=== PATIENT | female | born 1995 | race Caucasian/White ===

== ENCOUNTER 2016-09-23 06:51 | Emergency (ER) | payer OTHER ==
[~2016-09-23] VITALS: Ht 167.6 cm; Wt 104.3 kg
[~2016-09-23 06:51] MED LIST: AZIT500T2; BUTA1CAP29 PO; ETON1VAG; LEVO75TA5 PO; PREN1TAB58 PO
--- NOTE | 2016-09-23 06:53 | ED.ADGEN ---
Past History Past Medical History: No Pertinent History, Ovarian Cyst Additional Past Medical Histor: ulcers Past Surgical History: Other Additional Past Surgical Histo: ovarian cyst Smoking: Non-smoker Alcohol Use: None Drug Use: None Adult General Chief Complaint Chief Complaint Nausea vomiting diarrhea HPI HPI Patient is a 21 year old female who presents with nausea vomiting diarrhea. She states his been going on for last 4-5 days, started after she had to clean out vomit from [place]. 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 She states she's vomiting department twice per day and is after she tries to eat in addition she has nonbloody loose stools throughout the day. She states she can't count the meantime she's had stools but is usually after she tries to eat. She denies any abdominal pain, fevers chills. She has had a cyst removed on one of her ovaries otherwise no other abdominal surgeries. She is passing gas. She states she is just feels exhausted and tired and hasn't been able to work secondary to her symptoms. She denies any recent travel outside the country. Review of Systems Review of Systems Constitutional: Denies fever or chills [] Eyes: Denies change in visual acuity, redness, or eye pain [] HENT: Denies nasal congestion or sore throat [] Respiratory: Denies cough or shortness of breath [] Cardiovascular: No additional information not addressed in HPI [] GI: Denies abdominal pain positive for nausea vomiting diarrhea, denies any blood in her stools. : Denies dysuria or hematuria [] Musculoskeletal: Denies back pain or joint pain [] Integument: Denies rash or skin lesions [] Neurologic: Denies headache, focal weakness or sensory changes [] Endocrine: Denies polyuria or polydipsia [] Current Medications Current Medications Current Medications Medications (Trade) Dose Ordered Sig/Emily Start Time Stop Time Status Last Admin Dose Admin Ondansetron HCl 4 mg 4 mg 1X ONCE 09/23/16 07:30 09/23/16 07:31 DC 09/23/16 07:26 4 MG Sodium Chloride (Iv Sodium Chloride 0.9% 1,000ml) 1,000 ml @ 1,000 mls/hr 1X ONCE 09/23/16 08:15 09/23/16 09:14 09/23/16 08:15 1,000 MLS/HR Allergies Allergies Allergies Coded Allergies Type Severity Reaction Last Updated Verified amoxicillin Allergy Unknown 09/23/16 Yes Physical Exam Physical Exam Constitutional: Well developed, well nourished, no acute distress, non-toxic appearance. [] HENT: Normocephalic, atraumatic, bilateral external ears normal, oropharynx moist, no oral exudates, nose normal. [] Eyes: PERRLA, EOMI, conjunctiva normal, no discharge. [] Neck: Normal range of motion, no tenderness, supple, no stridor. [] Cardiovascular:Heart rate regular rhythm, no murmur [] Lungs & Thorax: Bilateral breath sounds clear to auscultation [] Abdomen: Bowel sounds normal, soft, no tenderness, no masses, no pulsatile masses. [] Skin: Warm, dry, no erythema, no rash. [] Back: No tenderness, no CVA tenderness. [] Extremities: No tenderness, no cyanosis, no clubbing, ROM intact, no edema. [] Neurologic: Alert and oriented X 3, normal motor function, normal sensory function, no focal deficits noted. [] Psychologic: Affect normal, judgement normal, mood normal. [] Current Patient Data Vital Signs Vital Signs Date Time Temp Pulse Resp B/P Pulse Ox O2 Delivery O2 Flow Rate FiO2 09/23/16 09:00 60 18 106/69 100 Room Air 09/23/16 07:03 97.9 Lab Results Laboratory Tests Test 09/23/16 07:10 09/23/16 07:12 09/23/16 07:25 Urine Collection Type Unknown Urine Color Yellow Urine Clarity Clear Urine pH 5.5 Urine Specific [place] 1.015 Urine Protein Neg (NEG-TRACE) Urine Glucose (UA) Negmg/dL (NEG) Urine Ketones (Stick) Negmg/dL (NEG) Urine Blood Trace (NEG) Urine Nitrite Neg (NEG) Urine Bilirubin Neg (NEG) Urine Urobilinogen Dipstick 0.2mg/dL (0.2 mg/dL) Urine Leukocyte Esterase Neg (NEG) Urine RBC Occ/HPF (0-2) Urine WBC 0/HPF (0-4) Urine Squamous Epithelial Cells Few/LPF Urine Bacteria 0/HPF (0-FEW) POC Urine HCG, Qualitative hcg negative (Negative) White Blood Count 8.6x10^3/uL (4.0-11.0) Red Blood Count 4.34x10^6/uL (3.50-5.40) Hemoglobin 12.7g/dL (12.0-15.5) Hematocrit 37.6% (36.0-47.0) Mean Corpuscular Volume 87fL (79-100) Mean Corpuscular Hemoglobin 29pg (25-35) Mean Corpuscular Hemoglobin Concent 34g/dL (31-37) Red Cell Distribution Width 13.5% (11.5-14.5) Platelet Count 253x10^3/uL (140-400) Neutrophils (%) (Auto) 56% (31-73) Lymphocytes (%) (Auto) 33% (24-48) Monocytes (%) (Auto) 8% (0-9) Eosinophils (%) (Auto) 3% (0-3) Basophils (%) (Auto) 1% (0-3) Neutrophils # (Auto) 4.8x10^3uL (1.8-7.7) Lymphocytes # (Auto) 2.8x10^3/uL (1.0-4.8) Monocytes # (Auto) 0.7x10^3/uL (0.0-1.1) Eosinophils # (Auto) 0.2x10^3/uL (0.0-0.7) Basophils # (Auto) 0.0x10^3/uL (0.0-0.2) Sodium Level 139mmol/L (136-145) Potassium Level 4.0mmol/L (3.5-5.1) Chloride Level 105mmol/L (98-107) Carbon Dioxide Level 28mmol/L (21-32) Anion Gap 6 (6-14) Blood Urea Nitrogen 10mg/dL (7-20) Creatinine 0.8mg/dL (0.6-1.0) Estimated GFR (Cockcroft-Gault) 90.5 Glucose Level 101mg/dL (70-99) H Calcium Level 8.4mg/dL (8.5-10.1) L Total Bilirubin 0.3mg/dL (0.2-1.0) Direct Bilirubin 0.1mg/dL (0.0-0.2) Aspartate Amino Transferase (AST) 15U/L (15-37) Alanine Aminotransferase (ALT) 22U/L (14-59) Alkaline Phosphatase 80U/L (46-116) Total Protein 7.6g/dL (6.4-8.2) Albumin 3.4g/dL (3.4-5.0) Lipase 174U/L (73-393) EKG EKG [] Radiology/Procedures Radiology/Procedures [] Course & Med Decision Making Course & Med Decision Making Pertinent Labs and Imaging studies reviewed. (See chart for details) She received 2 L of normal saline she did urinate for us but has not had any kind of bowel movements. Her labs not show any acute abnormalities. She will be discharged home with AKHIL Joseph, she is instructed to follow-up with primary care physician within next 45 days, return ER she was fevers chills dehydration , abdominal pain or symptoms don't improve over the next several days. She is agreeable Plan B discharged in stable condition. Final Impression Final Impression Nausea vomiting diarrhea Problems: Dragon Disclaimer Dragon Disclaimer This electronic medical record was generated, in whole or in part, using a voice recognition dictation system. COMPA PICHARDO MD September 23, 2016 06:53
[2016-09-23] MEDS ORDERED: ONDANSETRON PF 4 MG/2 ML VIAL. IV ONE (07:30)
[2016-09-23] MEDS ORDERED: IV NORMAL SALINE 1,000ML 1,000 ML IV SCH (07:30)
[2016-09-23 07:46] LABS: BASO % 1 % (0-3); EOS # 0.2 x10^3/uL (0.0-0.7); EOS % 3 % (0-3); HEMATOCRIT 37.6 % (36.0-47.0); HEMOGLOBIN 12.7 g/dL (12.0-15.5); LYMPH # 2.8 x10^3/uL (1.0-4.8); LYMPH % 33 % (24-48); MEAN CORPUSCULAR HEMOGLOBIN 29 pg (25-35); MEAN CORPUSCULAR HGB CONC 34 g/dL (31-37); MEAN CORPUSCULAR VOLUME 87 fL (79-100); MONO # 0.7 x10^3/uL (0.0-1.1); MONO % 8 % (0-9); NEUT # 4.8 x10^3uL (1.8-7.7); NEUT % 56 % (31-73); PLATELET COUNT 253 x10^3/uL (140-400); RED BLOOD COUNT 4.34 x10^6/uL (3.50-5.40); RED CELL DISTRIBUTION WIDTH 13.5 % (11.5-14.5); WHITE BLOOD COUNT 8.6 x10^3/uL (4.0-11.0)
[2016-09-23 07:53] LABS: BACTERIA,URINE 0 /HPF (0-FEW); BILIRUBIN,URINE NEG (NEG); CLARITY,URINE CLEAR; COLOR,URINE YELLOW; GLUCOSE,URINE NEG (NEG); NITRITE,URINE NEG (NEG); RBC,URINE OCC /HPF (0-2); SQUAMOUS EPITHELIAL CELL,UR FEW /LPF; UROBILINOGEN,URINE 0.2 mg/dL (0.2 mg/dL); WBC,URINE 0 /HPF (0-4)
[2016-09-23 07:54] LABS: ALBUMIN 3.4 g/dL (3.4-5.0); CALCIUM 8.4 mg/dL (8.5-10.1); CREATININE 0.8 mg/dL (0.6-1.0); DIRECT BILIRUBIN 0.1 mg/dL (0.0-0.2); GFR 90.5; TOTAL BILIRUBIN 0.3 mg/dL (0.2-1.0); TOTAL PROTEIN 7.6 g/dL (6.4-8.2)
[2016-09-23] MEDS ORDERED: IV NORMAL SALINE 1,000ML 1,000 ML IV ONE (08:15)
[2016-09-23 09:00] VITALS: BP 106/69
[2016-09-23] MEDS ORDERED: ONDA4TAB10 SL (09:01)
== END 2016-09-23 09:08 | disposition home or self-care (01) ==
LOC: ER 06:57
DX: R11.2 Nausea with vomiting, unspecified (principal); R19.7 Diarrhea, unspecified; Z88.1 Allergy status to other antibiotic agents
CPT/HCPCS: 36415; 80048; 80076; 81001; 81025; 83690; 85027; 96361; 96374; 99284; J2405; J7030

== ENCOUNTER 2016-11-20 16:52 | Emergency (ER) | payer OTHER ==
[~2016-11-20] VITALS: Ht 167.6 cm; Wt 105.0 kg
[~2016-11-20 16:52] MED LIST changes: +ONDA4TAB10 SL
[2016-11-20] MEDS ORDERED: ONDANSETRON ODT 4 MG TAB.RAPDIS PO ONE (17:45)
[2016-11-20] MEDS ORDERED: MORPHINE SULFATE 10 MG/ML SYRINGE. IM ONE (17:45)
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
--- NOTE | 2016-11-20 18:29 | EKG ---
[address] [address] Test Date: 2016-11-20 Test Time: 17:46:31 Pat Name: JEANA WAKEFIELD Department: Room: Gender: F [employer] Techn[employer]: : 1995 Requested By: AMANDA JHA Order Number: [id number] Reading MD: Measurements Intervals [place] Rate: 81 P: 39 NV: 138 QRS: 20 QRSD: 84 T: 34 QT: 350 QTc: 407 Interpretive Statements SINUS RHYTHM NORMAL ECG RI6.01 Unconfirmed report No previous ECG available for comparison
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
[2016-11-20] MEDS ORDERED: ALPRAZolam 0.25 MG TABLET PO ONE (19:20)
[2016-11-20 20:40] VITALS: BP 109/65
[2016-11-20] MEDS ORDERED: KETOROLAC 60 MG/2 ML VIAL. IM ONE (20:45)
== END 2016-11-20 21:00 | disposition home or self-care (01) ==
LOC: ER 16:52
DX: R10.30 Lower abdominal pain, unspecified (principal); M54.2 Cervicalgia; R07.89 Other chest pain; Z88.1 Allergy status to other antibiotic agents; V89.2XXA Person injured in unspecified motor-vehicle accident, traffic, initial encounter; Y93.89 Activity, other specified; Y99.8 Other external cause status; Y92.410 Unspecified street and highway as the place of occurrence of the external cause
CPT/HCPCS: 51701; 70450; 71250; 72125; 74176; 93005; 96372; 99284; J1885; J2270; Q0162

== ENCOUNTER 2016-11-22 22:42 | Emergency (ER) | payer OTHER ==
[~2016-11-22] VITALS: Ht 167.6 cm; Wt 105.0 kg
[2016-11-22 22:50] VITALS: BP 132/73
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
[2016-11-22] MEDS ORDERED: diphenhydrAMINE 50 MG/ML VIAL IVP ONE (23:15)
[2016-11-22] MEDS ORDERED: PROCHLORPERAZINE 10 MG/2 ML VIAL. IV ONE (23:15)
[2016-11-22] MEDS ORDERED: IV NORMAL SALINE 1,000ML 1,000 ML IV ONE (23:15)
[2016-11-22 23:49] LABS: BASO % 0 % (0-3); EOS # 0.4 x10^3/uL (0.0-0.7); EOS % 4 % (0-3); HEMATOCRIT 37.3 % (36.0-47.0); HEMOGLOBIN 12.6 g/dL (12.0-15.5); LYMPH # 3.3 x10^3/uL (1.0-4.8); LYMPH % 28 % (24-48); MEAN CORPUSCULAR HEMOGLOBIN 29 pg (25-35); MEAN CORPUSCULAR HGB CONC 34 g/dL (31-37); MEAN CORPUSCULAR VOLUME 86 fL (79-100); MONO # 0.9 x10^3/uL (0.0-1.1); MONO % 7 % (0-9); NEUT # 7.4 x10^3uL (1.8-7.7); NEUT % 61 % (31-73); PLATELET COUNT 254 x10^3/uL (140-400); RED BLOOD COUNT 4.37 x10^6/uL (3.50-5.40); RED CELL DISTRIBUTION WIDTH 13.5 % (11.5-14.5); WHITE BLOOD COUNT 12.1 x10^3/uL (4.0-11.0)
[2016-11-22 23:52] LABS: BILIRUBIN,URINE NEG (NEG); CLARITY,URINE CLEAR; COLOR,URINE YELLOW; GLUCOSE,URINE NEG (NEG); NITRITE,URINE NEG (NEG); RBC,URINE 0 /HPF (0-2); UROBILINOGEN,URINE 0.2 mg/dL (0.2 mg/dL); WBC,URINE OCC /HPF (0-4)
[2016-11-22 23:53] LABS: BACTERIA,URINE 0 /HPF (0-FEW); SQUAMOUS EPITHELIAL CELL,UR FEW /LPF
[2016-11-22 23:57] LABS: ALBUMIN 3.6 g/dL (3.4-5.0); ALBUMIN/GLOBULIN RATIO 0.8 (1.0-1.7); CALCIUM 8.5 mg/dL (8.5-10.1); CREATININE 0.9 mg/dL (0.6-1.0); POTASSIUM 3.5 mmol/L (3.5-5.1); TOTAL BILIRUBIN 0.3 mg/dL (0.2-1.0); TOTAL PROTEIN 8.1 g/dL (6.4-8.2)
--- NOTE | 2016-11-22 23:57 | RAD ---
CT scan of the head without contrast 11/22/2016 Clinical History: Worsening headache.. Technique: Unenhanced, contiguous, 5 mm axial sections were obtained through the head. One or more of the following individualized dose reduction techniques were utilized for this study: 1. Automated exposure control. 2. Adjustment of the mA and/or kV according to patient size. 3. Use of iterative reconstruction technique. Findings: Comparison study is dated 11/20/2016. The ventricles and sulci are within normal limits in size and configuration. No focal area of abnormal attenuation is seen involving the brain parenchyma. No extra-axial fluid collection is seen. Impression: Negative study. Electronically signed by: Shadi Armenta MD (11/22/2016 11:54 PM)
[2016-11-23] MEDS ORDERED: ONDA4TAB7 PO (00:29)
[2016-11-23] MEDS ORDERED: CYCL-331 PO (00:29)
== END 2016-11-23 00:43 | disposition home or self-care (01) ==
LOC: ER 22:42
DX: Z33.1 Pregnant state, incidental (principal); R51 Headache; M79.1 Myalgia; R10.9 Unspecified abdominal pain; M54.2 Cervicalgia; M25.512 Pain in left shoulder; M25.511 Pain in right shoulder; V89.2XXD Person injured in unspecified motor-vehicle accident, traffic, subsequent encounter; Z98.890 Other specified postprocedural states; Z88.1 Allergy status to other antibiotic agents
CPT/HCPCS: 36415; 70450; 80053; 81001; 81025; 84702; 85027; 96361; 96374; 96375; 99285; J0780; J1200; J7030

== ENCOUNTER → 2016-11-25 | Outpatient (CLI) | payer OTHER ==
[2016-11-22 22:50] VITALS: BP 132/73
[~2016-11-25] MED LIST changes: +CYCL-331 PO; +ONDA4TAB7 PO
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
== END | disposition home or self-care (01) ==
LOC: RAD 16:51
PROVIDERS: ATTEND Family Medicine
DX: R07.9 Chest pain, unspecified (principal); M25.519 Pain in unspecified shoulder; V29.9XXD Motorcycle rider (driver) (passenger) injured in unspecified traffic accident, subsequent encounter
CPT/HCPCS: 71020

== ENCOUNTER 2017-01-22 20:00 | Emergency (ER) | payer OTHER ==
[~2017-01-22] VITALS: Ht 167.6 cm; Wt 115.4 kg
[2017-01-22 21:12] LABS: BACTERIA,URINE 0 /HPF (0-FEW); BILIRUBIN,URINE NEG (NEG); CLARITY,URINE CLEAR; COLOR,URINE YELLOW; GLUCOSE,URINE NEG (NEG); NITRITE,URINE NEG (NEG); SQUAMOUS EPITHELIAL CELL,UR MOD /LPF; UROBILINOGEN,URINE 0.2 mg/dL (0.2 mg/dL)
[2017-01-22] MEDS ORDERED: AZITHROMYCIN 250 MG TABLET. PO ONE (22:15)
[2017-01-22] MEDS ORDERED: cefTRIAXone IM 250 MG VIAL IM ONE (22:15)
[2017-01-22] MEDS ORDERED: ONDANSETRON ODT 4 MG TAB.RAPDIS ONE (22:19)
[2017-01-22] MEDS ORDERED: ONDA4TAB10 SL (22:23)
--- NOTE | 2017-01-22 22:23 | PHYS DOC ---
Past History Past Medical History: Endometriosis, Migraines, Ovarian Cyst Additional Past Medical Histor: ulcers Past Surgical History: Other Additional Past Surgical Histo: ovarian cyst Smoking: Non-smoker Alcohol Use: None Drug Use: None Adult General Chief Complaint Chief Complaint: ABDOMINAL PAIN IN [facility] HPI Patient is a 21 year old female who presents with complaint of pelvic cramping. Patient states that she has been having worsening symptoms over the past 2 days but has been having off-and-on symptoms for approximately 2 weeks. The patient is currently 11 weeks . Patient follows with Dr. Gutiérrez for care. Patient had an ultrasound at 7 weeks which confirmed intrauterine at that time. Patient denies any fevers. Patient has had persistent nausea over the course of her first trimester but is currently not on any medications. Patient states that the cramping in her pelvis seems to radiate towards her low back. Patient denies any urinary symptoms or vaginal bleeding but has noted abnormal vaginal discharge. Patient states that she has not had sexual intercourse over the past month. Agent has not taken any medications for her symptoms at this time. He states that she has been drinking normal amounts of water at home. Review of Systems Review of Systems Constitutional: Denies fever or chills [] Eyes: Denies change in visual acuity, redness, or eye pain [] HENT: Denies nasal congestion or sore throat [] Respiratory: Denies cough or shortness of breath [] Cardiovascular: No additional information not addressed in HPI [] GI: Nausea, denies vomiting, bloody stools or diarrhea [] : Pelvic cramping, vaginal discharge, denies vaginal bleeding, dysuria, or hematuria[] Musculoskeletal: Back pain[] Integument: Denies rash or skin lesions [] Neurologic: Denies headache, focal weakness or sensory changes [] Current Medications Current Medications Current Medications Medications (Trade) Dose Ordered Sig/Emily Start Time Stop Time Status Last Admin Dose Admin Azithromycin (Zithromax) 1,000 mg 1X ONCE 01/22/17 22:15 01/22/17 22:16 DC Ceftriaxone Sodium (Rocephin Im) 250 mg 1X ONCE 01/22/17 22:15 01/22/17 22:16 DC Allergies Allergies Allergies Coded Allergies Type Severity Reaction Last Updated Verified amoxicillin Allergy Intermediate 01/22/17 Yes Physical Exam Physical Exam Constitutional: Alert, obese, afebrile, no acute distress. [] HENT: Normocephalic, atraumatic, bilateral external ears normal, oropharynx moist, no oral exudates, nose normal. [] Eyes: PERRLA, EOMI, conjunctiva normal, no discharge. [] Neck: Normal range of motion, no tenderness, supple, no stridor. [] Cardiovascular:Heart rate regular rhythm, no murmur [] Lungs & Thorax: Bilateral breath sounds clear to auscultation [] Abdomen: Bowel sounds normal, soft, no tenderness, no masses, no pulsatile masses. Pelvic: Normal external exam, thick yellow/white discharge from cervical os, cervix appears inflamed, cervical motion tenderness present, midline tenderness present on bimanual exam, no adnexal tenderness[] Skin: Warm, dry, no erythema, no rash. [] Back: No tenderness, no CVA tenderness. [] Extremities: No tenderness, no cyanosis, no clubbing, ROM intact, no edema. [] Neurologic: Alert and oriented X 3, normal motor function, normal sensory function, no focal deficits noted. [] Current Patient Data Vital Signs Vital Signs Date Time Temp Pulse Resp B/P (MAP) Pulse Ox O2 Delivery O2 Flow Rate FiO2 01/22/17 20:10 98.3 75 20 94 Room Air Lab Results Laboratory Tests Test 01/22/17 20:25 Urine Collection Type Void Urine Color Yellow Urine Clarity Clear Urine pH 6.0 Urine Specific [place] 1.020 Urine Protein Neg (NEG-TRACE) Urine Glucose (UA) Neg mg/dL (NEG) Urine Ketones (Stick) Neg mg/dL (NEG) Urine Blood Small (NEG) Urine Nitrite Neg (NEG) Urine Bilirubin Neg (NEG) Urine Urobilinogen Dipstick 0.2 mg/dL (0.2 mg/dL) Urine Leukocyte Esterase Neg (NEG) Urine RBC 3-5 /HPF (0-2) Urine WBC 1-4 /HPF (0-4) Urine Squamous Epithelial Cells Mod /LPF Urine Bacteria 0 /HPF (0-FEW) Urine Mucus Marked /LPF Microbiology 01/22/17 Wet Prep - Final, Complete EKG EKG Not performed[] Radiology/Procedures Radiology/Procedures Limited transabdominal bedside ultrasound performed and interpreted by myself: Viable intrauterine , heart rate 174 bpm, frequent movements, no abnormalities noted in the adnexa[] Course & Med Decision Making Course & Med Decision Making Pertinent Labs and Imaging studies reviewed. (See chart for details) The patient has evidence of cervicitis on the exam. Despite patient's history of no sexual intercourse reported, I feel clinically the patient should be treated for possible sexually transmitted infection. The patient was given IM Rocephin and oral azithromycin. Gonorrhea and chlamydia cultures are pending at this time. Recommended follow-up with Dr. Gutiérrez in 3-5 days for reevaluation and also recommended continued oral hydration. Patient was provided with a prescription for Zofran to help with nausea. Advised return emergency department for any worsening symptoms. Patient voiced understanding and in agreement with treatment plan. Dragon Disclaimer Dragon Disclaimer This chart was dictated in whole or in part using Voice Recognition software in a busy, high-work load, and often noisy Emergency Department environment. It may contain unintended and wholly unrecognized errors or omissions. Departure Departure: Impression: Primary Impression: Cervicitis Additional Impression: First trimester Disposition: HOME, SELF-CARE Condition: IMPROVED Referrals: BIANCA ROSEN DO (PCP) Patient Instructions: Cervicitis, - First Trimester Additional Instructions: Follow-up with Dr. Gutiérrez in 3-5 days for re-evaluation. You were treated with Rocephin and Azithromycin for possible infection. Return to the emergency department for any worsening symptoms. Scripts Ondansetron (ZOFRAN ODT) 4 Mg Tab.rapdis 1 TAB SL Q8HRS Y for NAUSEA/VOMITING, #15 TAB Prov: TERRI RESENDEZ MD 01/22/17 Problem Qualifiers TERRI RESENDEZ MD Jan 22, 2017 22:23
[2017-01-22 22:35] VITALS: BP 105/57
[2017-01-23] MEDS ORDERED: ONDANSETRON ODT 4 MG TAB.RAPDIS PO ONE
[2017-01-26 14:09] LABS: CHLAMYDIA PROBE Negative (Negative)
== END 2017-01-22 22:45 | disposition home or self-care (01) ==
LOC: ER 20:00
DX: O23.511 Infections of cervix in pregnancy, first trimester (principal); G43.909 Migraine, unspecified, not intractable, without status migrainosus; Z3A.01 Less than 8 weeks gestation of pregnancy; Z88.1 Allergy status to other antibiotic agents
CPT/HCPCS: 36415; 81001; 87491; 87591; 96372; 99285; J0456; J0696; Q0111; Q0162

== ENCOUNTER 2018-02-02 08:49 | Emergency (ER) | payer OTHER ==
[~2018-02-02] VITALS: Ht 167.6 cm; Wt 113.4 kg
[2018-02-02 08:53] VITALS: BP 111/71
--- NOTE | 2018-02-02 09:18 | PHYS DOC ---
Past History Past Medical History: Endometriosis, Migraines, Ovarian Cyst Additional Past Medical Histor: ulcers Past Surgical History: Other Additional Past Surgical Histo: ovarian cyst Smoking: Non-smoker Alcohol Use: None Drug Use: None Adult General Chief Complaint Chief Complaint: ABDOMINAL PAIN [facility] HPI Patient is a 22 year old female who presents with complaining of lower abdominal pain that started about 20 minutes prior to arrival to ER as a sharp and constant pain with radiation to genital area in his back. Patient complaining of nausea without fever and chills, diarrhea and constipation, urinary symptoms, vaginal bleeding or discharge. Patient denies history of the same pain. Patient rated her pain 9/10. Patient didn't take any pain medication prior to arrival to ER. Patient states her LMP was January 17 that was 3 weeks late and started 1 week after starting control pills with 8 days of spotting. Review of Systems Review of Systems Constitutional: Denies fever or chills [] Eyes: Denies change in visual acuity, redness, or eye pain [] HENT: Denies nasal congestion or sore throat [] Respiratory: Denies cough or shortness of breath [] Cardiovascular: No additional information not addressed in HPI [] GI: Reports abdominal pain, nausea, denies vomiting, bloody stools or diarrhea [ ] : Denies dysuria or hematuria [] Musculoskeletal: Denies back pain or joint pain [] Integument: Denies rash or skin lesions [] Neurologic: Denies headache, focal weakness or sensory changes [] Endocrine: Denies polyuria or polydipsia [] All other systems were reviewed and found to be within normal limits, except as documented in this note. Allergies Allergies Allergies Coded Allergies Type Severity Reaction Last Updated Verified amoxicillin Allergy Intermediate 01/22/17 Yes Physical Exam Physical Exam Constitutional: Well developed, well nourished, mild distress, non-toxic appearance, morbidly obese. [] HENT: Normocephalic, atraumatic, oropharynx moist. [] Eyes: PERRLA, EOMI, conjunctiva normal, no discharge. [] Neck: Normal range of motion, no tenderness, supple, no stridor. [] Cardiovascular:Heart rate regular rhythm, no murmur [] Lungs & Thorax: Bilateral breath sounds clear to auscultation [] Abdomen: Bowel sounds normal, soft, no tenderness, no masses, no pulsatile masses. [] Skin: Warm, dry, no erythema, no rash. [] Back: No tenderness, no CVA tenderness. [] Extremities: No tenderness, no cyanosis, no clubbing, ROM intact, no edema. [] Neurologic: Alert and oriented X 3, normal motor function, normal sensory function, no focal deficits noted. [] Psychologic: Affect anxious, judgement normal, mood normal. [] Current Patient Data Vital Signs Vital Signs Date Time Temp Pulse Resp B/P (MAP) Pulse Ox O2 Delivery O2 Flow Rate FiO2 02/02/18 08:53 97.9 84 18 98 Room Air EKG EKG [] Radiology/Procedures Radiology/Procedures [] Course & Med Decision Making Course & Med Decision Making Pertinent Labs reviewed. (See chart for details) Evaluation of patient in ER showed 23-year-old female patient with complaining of lower abdominal pain that started 20 minutes prior to arrival to ER patient had unremarkable physical exam and UA. test was negative. Patient treated with Toradol and received and felt better. Plan discharge patient home with diagnose of lower abdominal pain. Dragon Disclaimer Dragon Disclaimer This electronic medical record was generated, in whole or in part, using a voice recognition dictation system. Departure Departure: Impression: Primary Impression: Lower abdominal pain Disposition: HOME, SELF-CARE (at 1010) Condition: IMPROVED Referrals: YODIT VALENZUELA JR, MD (PCP) Patient Instructions: Abdominal Pain, Muscle Cramps Additional Instructions: Drink plenty of liquids Follow-up with your primary care physician in 3-5 days Return to ER if not getting better Scripts Tramadol Hcl (ULTRAM) 50 Mg Tablet 50 MG PO PRN Q6HRS PRN for PAIN, #14 TAB Prov: AIMEE RAMSEY MD 02/02/18 Cyclobenzaprine Hcl (CYCLOBENZAPRINE HCL) 5 Mg Tablet 1 TAB PO TID, #20 TAB Prov: AIMEE RAMSEY MD 02/02/18 AIMEE RAMSEY MD Feb 02, 2018 09:18
[2018-02-02 09:59] LABS: BILIRUBIN,URINE NEG (NEG); CLARITY,URINE HAZY; COLOR,URINE YELLOW; GLUCOSE,URINE NEG (NEG)
[2018-02-02 10:00] LABS: NITRITE,URINE NEG (NEG); UROBILINOGEN,URINE 0.2 mg/dL (0.2 mg/dL)
[2018-02-02] MEDS ORDERED: KETOROLAC 60 MG/2 ML VIAL. IM ONE (10:00)
[2018-02-02] MEDS ORDERED: CYCLOBENZAPRINE 10 MG TABLET. PO ONE (10:00)
[2018-02-02] MEDS ORDERED: TRAM-48 PO (10:12)
[2018-02-02] MEDS ORDERED: CYCL5TAB PO (10:12)
== END 2018-02-02 10:19 | disposition home or self-care (01) ==
LOC: ER 08:49
DX: R10.30 Lower abdominal pain, unspecified (principal); R11.0 Nausea; G43.909 Migraine, unspecified, not intractable, without status migrainosus; Z88.1 Allergy status to other antibiotic agents
CPT/HCPCS: 81003; 81025; 96372; 99283; J1885

== ENCOUNTER 2018-03-28 15:32 | Emergency (ER) | payer OTHER ==
[~2018-03-28] VITALS: Ht 167.6 cm; Wt 118.4 kg
[~2018-03-28 15:32] MED LIST changes: +CYCL5TAB PO; +TRAM-48 PO
[2018-03-28 16:30] LABS: BILIRUBIN,URINE NEG (NEG); CLARITY,URINE HAZY; COLOR,URINE YELLOW; GLUCOSE,URINE NEG (NEG); NITRITE,URINE NEG (NEG); UROBILINOGEN,URINE 0.2 mg/dL (0.2 mg/dL)
[2018-03-28 16:34] VITALS: BP 124/75
--- NOTE | 2018-03-28 16:57 | PHYS DOC ---
Past History Past Medical History: Endometriosis, Migraines, Ovarian Cyst Additional Past Medical Histor: ulcers Past Surgical History: Other Additional Past Surgical Histo: ovarian cyst Smoking: Non-smoker Alcohol Use: None Drug Use: None Adult General Chief Complaint Chief Complaint: BACK PAIN OR INJURY [facility] HPI Patient is a 23 year old female who presents with pinning of low back pain after lifting heavy weight at work since yesterday. Patient complaining of radiation of the sharp pain to left thigh and numbness of the left toes without bowel or urine incontinence, fever and chills, abdominal pain, nausea and vomiting. Patient rated her pain 8/10 and states she took Tylenol last night but didn't take any pain medication today. Patient denies vaginal bleeding or discharge as stated LMP was February 08. Patient does not use any control and is A1. Review of Systems Review of Systems Constitutional: Denies fever or chills [] Eyes: Denies change in visual acuity, redness, or eye pain [] HENT: Denies nasal congestion or sore throat [] Respiratory: Denies cough or shortness of breath [] Cardiovascular: No additional information not addressed in HPI [] GI: Denies abdominal pain, nausea, vomiting, bloody stools or diarrhea [] : Denies dysuria or hematuria [] Musculoskeletal: Reports back pain Integument: Denies rash or skin lesions [] Neurologic: Denies headache, focal weakness or sensory changes [] Endocrine: Denies polyuria or polydipsia [] All other systems were reviewed and found to be within normal limits, except as documented in this note. Allergies Allergies Allergies Coded Allergies Type Severity Reaction Last Updated Verified amoxicillin Allergy Intermediate 01/22/17 Yes Physical Exam Physical Exam Constitutional: Well developed, well nourished, mild distress, non-toxic appearance. [] HENT: Normocephalic, atraumatic Eyes: PERRLA, EOMI, conjunctiva normal, no discharge. [] Neck: Normal range of motion, no tenderness, supple, no stridor. [] Cardiovascular:Heart rate regular rhythm, no murmur [] Lungs & Thorax: Bilateral breath sounds clear to auscultation [] Abdomen: Bowel sounds normal, soft, no tenderness, no masses, no pulsatile masses. [] Skin: Warm, dry, no erythema, no rash. [] Back: No midline tenderness, left paraspinal muscular spasm, no CVA tenderness. [] Extremities: No tenderness, no cyanosis, no clubbing, ROM intact, no edema. [] Neurologic: Alert and oriented X 3, normal motor function, normal sensory function, no left lower extremity sensory loss, no focal deficits noted. [] Psychologic: Affect normal, judgement normal, mood normal. [] Current Patient Data Lab Results Laboratory Tests Test 03/28/18 16:18 Urine Collection Type Unknown Urine Color Yellow Urine Clarity Hazy Urine pH 7.0 Urine Specific [place] 1.015 Urine Protein Neg (NEG-TRACE) Urine Glucose (UA) Neg mg/dL (NEG) Urine Ketones (Stick) Neg mg/dL (NEG) Urine Blood Neg (NEG) Urine Nitrite Neg (NEG) Urine Bilirubin Neg (NEG) Urine Urobilinogen Dipstick 0.2 mg/dL (0.2 mg/dL) Urine Leukocyte Esterase Neg (NEG) POC Urine HCG, Qualitative hcg positive (Negative) EKG EKG [] Radiology/Procedures Radiology/Procedures [] Course & Med Decision Making Course & Med Decision Making Pertinent Labs reviewed. (See chart for details) Evaluation of patient in ER showed 23-year-old male patient with complaining of low back pain after lifting weights at work. Patient had positive test in ER and became upset about the test results. Patient instructed to take [id number] Tylenol and apply ice on her back and follow up with her OB/ KILN CHARGER. Dragon Disclaimer Dragon Disclaimer This electronic medical record was generated, in whole or in part, using a voice recognition dictation system. 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
[2018-03-28] MEDS ORDERED: ACETAMINOPHEN 500 MG TABLET PO ONE (17:00)
== END 2018-03-28 17:21 | disposition home or self-care (01) ==
LOC: ER 15:32
DX: O9A.211 Injury, poisoning and certain other consequences of external causes complicating pregnancy, first trimester (principal); S39.012A Strain of muscle, fascia and tendon of lower back, initial encounter; G43.909 Migraine, unspecified, not intractable, without status migrainosus; Z88.1 Allergy status to other antibiotic agents; Z3A.00 Weeks of gestation of pregnancy not specified; X50.9XXA Other and unspecified overexertion or strenuous movements or postures, initial encounter; Y93.89 Activity, other specified; Y92.89 Other specified places as the place of occurrence of the external cause; Y99.0 Civilian activity done for income or pay
CPT/HCPCS: 81003; 81025; 99282

== ENCOUNTER → 2018-08-24 | Outpatient (CLI) | payer OTHER ==
--- NOTE | 2018-08-24 17:41 | RAD ---
Ultrasound of the left neck HISTORY: Enlarged lymph nodes of the left neck. Painful to sleep on the left neck. TECHNIQUE: Targeted ultrasound performed in the area of concern along the left neck and jaw. FINDINGS: Multiple (at least 8) soft tissue nodules are identified in the left neck, most measure less than 1 cm. Largest nodule measures 2.0 cm long axis. Some of these demonstrate lymph node architecture with a central fatty hilum, but some smaller lesions are more nonspecific. IMPRESSION: Multiple soft tissue nodules in the region of the left neck and jaw line, most likely prominent lymph nodes. These are nonspecific, but could be inflammatory or reactive. CT or MRI of the neck could be of benefit for further evaluation. Recommend clinical and/or sonographic follow-up to document resolution and lack of progression. Electronically signed by: Rico Olivera MD (08/24/2018 5:38 PM) [facility]
== END | disposition home or self-care (01) ==
LOC: US 16:01
PROVIDERS: ATTEND General Practice
DX: R22.1 Localized swelling, mass and lump, neck (principal)
CPT/HCPCS: 76536

== ENCOUNTER 2019-12-04 10:51 | Emergency (ER) | payer OTHER ==
[~2019-12-04] VITALS: Ht 167.6 cm; Wt 117.0 kg
[2019-12-04] MEDS ORDERED: IV NORMAL SALINE 1,000ML 1,000 ML IV SCH (11:20)
--- NOTE | 2019-12-04 11:47 | PHYS DOC ---
Past History Past Medical History: Endometriosis, Other Additional Past Medical Histor: PCOS Past Surgical History: Other Additional Past Surgical Histo: R WRIST, ENDOMETRIAL LINING SCRAPING, OVARIAN CYST, WISDOM TEETH REMOVAL Smoking: Non-smoker Alcohol Use: None Drug Use: None General Adult EDM: Chief Complaint: ABDOMINAL PAIN HPI: HPI: Patient is a 24 year old female who presents for evaluation of left lower quadrant abdominal and back pain. Onset over the past couple of days. Patient has been passing clots vaginally for almost 3 weeks. Patient is complaining of malaise and nausea. Patient denies any black, bloody or tarry stools or obvious blood in her urine. Patient has a history of polycystic ovarian disease as well as endometriosis. Patient is a 5 para 4 miscarriage 1. Her last period was at least 1 month before her current 3 weeks of vaginal bleeding. Patient states she is not seen a physician for evaluation regarding this acute on chronic condition Review of Systems: Review of Systems: Constitutional: Denies fever or chills Eyes: Denies change in visual acuity HENT: Denies nasal congestion or sore throat Respiratory: Denies cough or shortness of breath Cardiovascular: Denies chest pain or edema GI: has abdominal pain, with nausea, no vomiting, bloody stools or diarrhea : Denies dysuria Musculoskeletal: has back pain, no joint pain Integument: Denies rash Neurologic: Denies headache, focal weakness or sensory changes Endocrine: Denies polyuria or polydipsia Lymphatic: Denies swollen glands Psychiatric: Denies depression or anxiety Heart Score: Risk Factors: Risk Factors: DM, Current or recent (<one month) smoker, HTN, HLP, family history of CAD, obesity. Risk Scores: Score 0 - 3: 2.5% MACE over next 6 weeks - Discharge Home Score 4 - 6: 20.3% MACE over next 6 weeks - Admit for Clinical Observation Score 7 - 10: 72.7% MACE over next 6 weeks - Early Invasive Strategies Current Medications: Current Meds: Current Medications Medications (Trade) Dose Ordered Sig/Emily Start Time Stop Time Status Last Admin Dose Admin Sodium Chloride 1,000 ml @ 100 mls/hr Q10H 12/04/19 11:20 12/04/19 21:19 Allergies: Allergies: Allergies Coded Allergies Type Severity Reaction Last Updated Verified amoxicillin Allergy Intermediate 01/22/17 Yes Penicillins Allergy Unknown 12/04/19 Yes Physical Exam: PE: Constitutional: Well developed, well nourished, mild acute distress, non-toxic appearance. [] HENT: Normocephalic, atraumatic, bilateral external ears normal. [] Eyes: PERRL, EOMI, conjunctiva normal, no discharge. [] Neck: Normal range of motion, no tenderness, supple. [] Cardiovascular:Heart rate regular rhythm, no murmur [] Lungs & Thorax: Bilateral breath sounds clear to auscultation [] Abdomen: Bowel sounds normal, soft, mild tenderness left lower abdomen, no masses. [] Skin: Warm, dry, no erythema, no rash. [] Back: No tenderness. [] Extremities: No tenderness, no cyanosis, no clubbing, ROM intact, no edema. [] Neurologic: Alert and oriented, normal motor function, normal sensory function, no focal deficits noted. [] Psychologic: Affect normal, judgement normal, mood normal. : green discharge noted, no clots present, suprapubic tender, female nurse chaparone present[] Current Patient Data: Vital Signs: Vital Signs Date Time Temp Pulse Resp B/P (MAP) Pulse Ox O2 Delivery O2 Flow Rate FiO2 12/04/19 11:11 98.3 113 18 126/65 (85) 98 Room Air EKG: EKG: [] Radiology/Procedures: Radiology/Procedures: [] Course & Med Decision Making: Course & Med Decision Making Pertinent Labs and Imaging studies reviewed. (See chart for details) [] Dragon Disclaimer: Dragon Disclaimer: This electronic medical record was generated, in whole or in part, using a voice recognition dictation system. 1340 stable, patient feeling better at this time. CBC and chemistries unremarkable. Patient had green discharge on her vaginal exam. I suspect that she has underlying vaginitis and may be an infection related to her IUD. I do not suspect fulminant PID at this time. Prescription for Flagyl and Macrobid given. Close follow-up with her AIRPLANE NAVIGATOR recommended. She may need her IUD removed as soon as possible Departure Departure: Impression: Primary Impression: Vaginitis Qualified Codes: N76.0 - Acute vaginitis Additional Impression: Lower abdominal pain Disposition: 01 HOME/RESIDENCE PRIOR TO ADM Condition: STABLE Referrals: PCP,NO (PCP) Patient Instructions: Vaginitis, [id number] Additional Instructions: Call and see your referral specialist right away in follow up. You may be having a problem with your IUD and it may need to be removed. Take antibiotics as directed, return if worsen Scripts Metronidazole (FLAGYL) 500 Mg Tablet 1 TAB PO BID for vaginitis, #14 TAB Prov: MISTY LY DO 12/04/19 Nitrofurantoin Monohyd/M-Cryst (MACROBID 100 MG CAPSULE) 100 Mg Capsule 1 CAP PO BID for UTI for 7 Days, #14 CAP 0 Refills Prov: MISTY LY DO 12/04/19 Justification of Admission: Justification of Admission: Justification of Admission Dx: N/A MISTY LY DO Dec 04, 2019 11:47
[2019-12-04 11:57] LABS: U PREG PATIENT NEGATIVE (NEG)
[2019-12-04 12:10] LABS: BACTERIA,URINE FEW /HPF (0-FEW); BILIRUBIN,URINE NEG (NEG); CLARITY,URINE HAZY; COLOR,URINE YELLOW; GLUCOSE,URINE NEG (NEG); NITRITE,URINE NEG (NEG); SQUAMOUS EPITHELIAL CELL,UR MANY /LPF; UROBILINOGEN,URINE 0.2 mg/dL (0.2 mg/dL)
[2019-12-04 12:12] LABS: BASO % 0 % (0-3); EOS # 0.3 x10^3/uL (0.0-0.7); EOS % 3 % (0-3); HEMATOCRIT 37.8 % (36.0-47.0); LYMPH # 2.5 x10^3/uL (1.0-4.8); LYMPH % 23 % (24-48); MEAN CORPUSCULAR HEMOGLOBIN 30 pg (25-35); MEAN CORPUSCULAR HGB CONC 34 g/dL (31-37); MEAN CORPUSCULAR VOLUME 88 fL (79-100); MONO # 0.6 x10^3/uL (0.0-1.1); MONO % 5 % (0-9); NEUT # 7.4 x10^3uL (1.8-7.7); NEUT % 68 % (31-73); PLATELET COUNT 256 x10^3/uL (140-400); RED BLOOD COUNT 4.29 x10^6/uL (3.50-5.40); WHITE BLOOD COUNT 10.8 x10^3/uL (4.0-11.0)
[2019-12-04] MEDS ORDERED: AZITHROMYCIN 250 MG TABLET. PO ONE (12:15)
[2019-12-04] MEDS ORDERED: IV NORMAL SALINE 50ML 50 ML ONE (12:17)
[2019-12-04] MEDS ORDERED: cefTRIAXone SODIUM 1 GM VIAL ONE (12:17)
[2019-12-04 12:51] LABS: CALCIUM 8.2 mg/dL (8.5-10.1); CREATININE 1.1 mg/dL (0.6-1.0); POTASSIUM 3.6 mmol/L (3.5-5.1)
[2019-12-04 12:57] LABS: ALBUMIN 3.3 g/dL (3.4-5.0); ALBUMIN/GLOBULIN RATIO 0.8 (1.0-1.7); TOTAL BILIRUBIN 0.4 mg/dL (0.2-1.0); TOTAL PROTEIN 7.6 g/dL (6.4-8.2)
[2019-12-04] MEDS ORDERED: NITR100C62 PO (13:47)
[2019-12-04] MEDS ORDERED: METR500T PO (13:47)
[2019-12-04 13:56] VITALS: BP 101/54
[2019-12-04] MEDS ORDERED: ONDANSETRON PF 4 MG/2 ML VIAL. IVP ONE (14:15)
[2019-12-06 02:07] LABS: CHLAMYDIA PROBE Negative (Negative)
== END 2019-12-04 14:10 | disposition home or self-care (01) ==
LOC: ER 10:51
DX: N76.0 Acute vaginitis (principal); R10.32 Left lower quadrant pain; B96.89 Other specified bacterial agents as the cause of diseases classified elsewhere; R53.83 Other fatigue; R11.0 Nausea; Z98.890 Other specified postprocedural states; Z88.0 Allergy status to penicillin; Z88.1 Allergy status to other antibiotic agents
CPT/HCPCS: 36415; 80053; 81001; 81025; 83690; 84702; 85025; 87086; 87491; 87591; 96365; 96375; 99284; J0456; J0696; J2405; J7030; Q0111

== ENCOUNTER → 2020-02-12 | Outpatient (CLI) | payer OTHER ==
[~2020-02-12] MED LIST changes: +METR500T PO; +NITR100C62 PO
--- NOTE | 2020-02-12 15:01 | RAD ---
Examination: Ultrasound pelvis History :history of dyspareunia COMPARISON: 10/30/2014 FINDINGS: The uterus measures 9.9 x 6.1 x 4.3 cm. The endometrium measures 3.5 mm in thickness. Intrauterine contraceptive device is identified. The right ovary measures 1.9 x 1.4 x 3.0 cm. There is 1.5 cm follicle identified in the right ovary. Left ovary measures 2.0 x 3.5 x 3.4 cm. Evaluation of the blood flow to the ovaries limited due to bowel loops. IMPRESSION: Unremarkable examination , however evaluation of the blood flow to ovaries is limited due to bowel loops. Electronically signed by: Mak Hargrove MD (02/12/2020 2:58 PM) [id number]
== END | disposition home or self-care (01) ==
LOC: US 10:04
PROVIDERS: ATTEND Obstetrics & Gynecology
DX: N94.10 Unspecified dyspareunia (principal); N92.0 Excessive and frequent menstruation with regular cycle; R93.89 Abnormal findings on diagnostic imaging of other specified body structures
CPT/HCPCS: 76830; 76856

== ENCOUNTER 2020-05-02 11:58 | Emergency (ER) | payer OTHER ==
[~2020-05-02] VITALS: Ht 167.6 cm; Wt 126.0 kg
[2020-05-02 12:05] VITALS: BP 116/71
[2020-05-02] MEDS ORDERED: methylPREDNISolone SOD SUCC PF 125 MG/2 ML VIAL. IV ONE (12:30)
[2020-05-02] MEDS ORDERED: IV NORMAL SALINE 1,000ML 1,000 ML IV ONE (12:30)
[2020-05-02] MEDS ORDERED: ACYCLOVIR 200 MG CAPSULE PO ONE (12:30)
--- NOTE | 2020-05-02 12:39 | PHYS DOC ---
Past History Past Medical History: Endometriosis, Other Additional Past Medical Histor: PCOS, endometriosis, headaches Past Surgical History: Other Additional Past Surgical Histo: R WRIST, ENDOMETRIAL LINING SCRAPING, OVARIAN CYST, WISDOM TEETH REMOVAL Smoking: Non-smoker Alcohol Use: None Drug Use: None Adult General Chief Complaint Chief Complaint: HEADACHE HPI HPI Patient is a 25-year-old female patient with history of headaches, endometriosis, presented to the ED today complaining of 9 out of 10 posterior head pain described as throbbing intermittent, also complaining of left-sided facial numbness, symptoms have been going on since 9 AM this morning. Patient denies anything specifically exacerbating or relieving her headache. Denies any nausea, vomiting, chest pain. Denies any chance she is . Reports being on Mirena as well as well-controlled due to heavy menses. Review of Systems Review of Systems Constitutional: Denies fever or chills [] Eyes: Denies change in visual acuity, redness, or eye pain [] HENT: Denies nasal congestion or sore throat [] Respiratory: Denies cough or shortness of breath [] Cardiovascular: No additional information not addressed in HPI [] GI: Denies abdominal pain, nausea, vomiting, bloody stools or diarrhea [] : Denies dysuria or hematuria [] Musculoskeletal: Denies back pain or joint pain [] Integument: Denies rash or skin lesions [] Neurologic: Reports headache, left-sided facial numbness, denies focal weakness All other systems were reviewed and found to be within normal limits, except as documented in this note. Current Medications Current Medications Current Medications Medications (Trade) Dose Ordered Sig/Emily Start Time Stop Time Status Last Admin Dose Admin Acyclovir (Zovirax) 800 mg 1X ONCE 05/02/20 12:30 05/02/20 12:31 UNV Methylprednisolone Sodium Succinate (SOLU-Medrol 125MG VIAL) 125 mg 1X ONCE 05/02/20 12:30 05/02/20 12:31 UNV Sodium Chloride 1,000 ml @ 1,000 mls/hr 1X ONCE 05/02/20 12:30 05/02/20 13:29 UNV Allergies Allergies Allergies Coded Allergies Type Severity Reaction Last Updated Verified amoxicillin Allergy Intermediate 05/02/20 Yes Penicillins Allergy Unknown 05/02/20 Yes Physical Exam Physical Exam Constitutional: Well developed, well nourished, no acute distress, non-toxic appearance. [] HENT: Normocephalic, atraumatic, bilateral external ears normal, oropharynx moist, no oral exudates, nose normal. [] Eyes: PERRLA, EOMI, conjunctiva normal, no discharge. [] Neck: Normal range of motion, no tenderness, supple, no stridor. [] Cardiovascular:Heart rate regular rhythm, no murmur [] Lungs & Thorax: Bilateral breath sounds clear to auscultation [] Abdomen: Bowel sounds normal, soft, no tenderness, no masses, no pulsatile masses. [] Skin: Warm, dry, no erythema, no rash. [] Back: No tenderness, no CVA tenderness. [] Extremities: No tenderness, no cyanosis, no clubbing, ROM intact, no edema. [] Neurologic: Alert and oriented X 3, normal motor function, normal sensory function, no focal deficits noted. Cranial nerves II through XII intact Psychologic: Affect normal, judgement normal, mood normal. [] Current Patient Data Vital Signs Vital Signs Date Time Temp Pulse Resp B/P (MAP) Pulse Ox O2 Delivery O2 Flow Rate FiO2 05/02/20 12:05 97.9 70 18 116/71 (86) 98 Room Air EKG EKG [address] [place]. Sinus rhythm HR 73 no STEMI[] Radiology/Procedures Radiology/Procedures []PROCEDURE: CT HEAD WO CONTRAST Examination: CT HEAD/BRAIN WO History: Reason: headache, left sided facial paralysis / Spl. Instructions: / History: Comparison/Correlation: 11/22/2016 CT head without contrast Findings: Axial images of the head were obtained without contrast. The ventricles are normal size. No intracranial hemorrhage, midline shift, or mass effect. Normal watson-white matter differentiation. Bony structures unremarkable. Impression: Normal CT head without contrast. Electronically signed by: Arden Jose MD (05/02/2020 1:10 PM) [id number] DICTATED AND SIGNED BY: ARDEN JOSE MD DATE: 05/02/20 1308 CC: DIMITRY MURILLO APRN; GILSON RUSS MD ~MTH0 0 PROCEDURE: PORTABLE CHEST 1V INDICATION: Reason: left sided facial paralysis / Spl. Instructions: / History: COMPARISON: November 2016 FINDINGS: Single view of chest obtained. No focal airspace consolidation. Cardiomediastinal contour unremarkable. No acute osseous abnormality. IMPRESSION: * No focal airspace consolidation or edema. Electronically signed by: Barry Bell MD (05/02/2020 1:08 PM) [id number] DICTATED AND SIGNED BY: BARRY BELL MD DATE: 05/02/20 1306 CC: CHIDIDIMITRY APRN; GILSON RUSS MD ~MTH0 0 Heart Score Risk Factors: Risk Factors: DM, Current or recent (<one month) smoker, HTN, HLP, family history of CAD, obesity. Risk Scores: Risk Factors: DM, Current or recent (<one month) smoker, HTN, HLP, family history of CAD, obesity. Course & Med Decision Making Course & Med Decision Making Pertinent Labs and Imaging studies reviewed. (See chart for details) This is a 25-year-old female patient presenting to the ED today with complaints of headache and facial numbness to the left side that began today at 9 AM. Patient stroke scale is 0. Patient is in no distress. CT of the head is negative, stroke scale of 0, chest x-ray is negative, stroke work-up is essentially negative. She is not to a TPA candidate. Her symptoms are likely migraine headache, no significant symptoms for Mancia's palsy, discharge to home. Provided return precautions. Follow-up with her PCP in the course of this week as well as neurologist. Zi Disclaimer Zi Disclaimer This electronic medical record was generated, in whole or in part, using a voice recognition dictation system. NIH Stroke Scale: NIH Stroke Scale Response (Comments) Value Level of Consciousness: 0 Alert/Responsive 0 LOC Questions: 0 Answers both correctly 0 Best Gaze: 0 Normal 0 Visual: 0 No visual loss 0 Facial Palsy: 0 Normal, symmetrical 0 Motor - Left Arm 0 No drift 0 Motor - Right Arm 0 No drift 0 Motor - Left Leg 0 No drift 0 Motor: Right Leg 0 No drift 0 Limb Ataxia: 0 Absent 0 Sensory: 0 No loss 0 Best Language: 0 Normal 0 Dysathria: 0 Normal 0 Extinction and Inattention: 0 Normal 0 Total 0 Departure Departure: Impression: Primary Impression: Migraine Disposition: 01 DC HOME SELF CARE/HOMELESS Condition: STABLE Referrals: GILSON RUSS MD (PCP) follow up in the course of this week Patient Instructions: Migraine Headache Additional Instructions: You were evaluated in the emergency room for headache, your CAT scan of the head is negative for any acute findings, your lab work is negative for anything acute. You can take [id number]-fvp-[id number] medicines. Your headache. Please follow- up with your own doctor or neurologist of your choice in the course of this week Scripts Naproxen (NAPROXEN) 500 Mg Tablet 1 TAB PO BID for pain, #14 TAB 0 Refills Prov: DIMITRY MURILLO APRN 05/02/20 Prednisone (PREDNISONE) 50 Mg Tablet 1 TAB PO DAILY, #5 TAB Prov: DIMITRY MURILLO APRN 05/02/20 Problem Qualifiers Primary Impression: Migraine Migraine type: without aura Status migrainosus presence: without status migrainosus Intractability: not intractable Qualified Codes: G43.009 - M igraine without aura, not intractable, without status migrainosus DIMITRY MURILLO APRN May 02, 2020 12:38
--- NOTE | 2020-05-02 12:49 | EKG ---
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
[2020-05-02 13:01] LABS: BASO % 0 % (0-3); EOS # 0.1 x10^3/uL (0.0-0.7); EOS % 2 % (0-3); HEMATOCRIT 39.8 % (36.0-47.0); HEMOGLOBIN 13.1 g/dL (12.0-15.5); LYMPH # 2.3 x10^3/uL (1.0-4.8); LYMPH % 27 % (24-48); MEAN CORPUSCULAR HEMOGLOBIN 29 pg (25-35); MEAN CORPUSCULAR HGB CONC 33 g/dL (31-37); MEAN CORPUSCULAR VOLUME 89 fL (79-100); MONO # 0.5 x10^3/uL (0.0-1.1); MONO % 6 % (0-9); NEUT # 5.5 x10^3uL (1.8-7.7); NEUT % 65 % (31-73); PLATELET COUNT 251 x10^3/uL (140-400); RED BLOOD COUNT 4.48 x10^6/uL (3.50-5.40); RED CELL DISTRIBUTION WIDTH 13.2 % (11.5-14.5); WHITE BLOOD COUNT 8.5 x10^3/uL (4.0-11.0)
[2020-05-02 13:05] LABS: AMPHETAMINE/METHAMPHETAMINE NEG (NEG); BARBITURATES NEG (NEG); BENZODIAZEPINES NEG (NEG); CANNABINOIDS NEG (NEG); COCAINE NEG (NEG); METHADONE NEG (NEG); OPIATES NEG (NEG); PHENCYCLIDINE NEG (NEG)
[2020-05-02 13:09] LABS: CALCIUM 8.3 mg/dL (8.5-10.1); GFR 67.6; POTASSIUM 4.1 mmol/L (3.5-5.1)
--- NOTE | 2020-05-02 13:11 | RAD ---
INDICATION: Reason: left sided facial paralysis / Spl. Instructions: / History: COMPARISON: November 2016 FINDINGS: Single view of chest obtained. No focal airspace consolidation. Cardiomediastinal contour unremarkable. No acute osseous abnormality. IMPRESSION: * No focal airspace consolidation or edema. Electronically signed by: Jacob Vaughn MD (05/02/2020 1:08 PM) [id number]
--- NOTE | 2020-05-02 13:13 | RAD ---
Examination: CT HEAD/BRAIN WO History: Reason: headache, left sided facial paralysis / Spl. Instructions: / History: Comparison/Correlation: 11/22/2016 CT head without contrast Findings: Axial images of the head were obtained without contrast. The ventricles are normal size. No intracranial hemorrhage, midline shift, or mass effect. Normal watson-white matter differentiation. [place] structures unremarkable. Impression: Normal CT head without contrast. Electronically signed by: Arden Fontaine MD (05/02/2020 1:10 PM) [id number]
[2020-05-02 13:20] LABS: ALBUMIN 3.7 g/dL (3.4-5.0); ALBUMIN/GLOBULIN RATIO 0.9 (1.0-1.7); MAGNESIUM 2.1 mg/dL (1.8-2.4); TOTAL BILIRUBIN 0.3 mg/dL (0.2-1.0); TOTAL PROTEIN 7.6 g/dL (6.4-8.2)
[2020-05-02 13:28] LABS: BILIRUBIN,URINE NEG (NEG); CLARITY,URINE CLEAR; COLOR,URINE YELLOW; GLUCOSE,URINE NEG (NEG); NITRITE,URINE NEG (NEG); UROBILINOGEN,URINE 0.2 mg/dL (0.2 mg/dL)
[2020-05-02 13:29] LABS: BACTERIA,URINE 0 /HPF (0-FEW); SQUAMOUS EPITHELIAL CELL,UR FEW /LPF
[2020-05-02] MEDS ORDERED: NAPR-514 PO (13:34)
[2020-05-02] MEDS ORDERED: PRED50TA PO (13:34)
--- NOTE | 2020-05-08 10:40 | NUR ---
IP: attempt to notify patient of COVID result, phone message "not receiving calls at this time". Will send letter.
== END 2020-05-02 14:10 | disposition home or self-care (01) ==
LOC: ER 11:58
DX: G43.009 Migraine without aura, not intractable, without status migrainosus (principal); Z88.0 Allergy status to penicillin; Z88.1 Allergy status to other antibiotic agents
CPT/HCPCS: 36415; 70450; 71045; 80053; 80307; 81001; 81025; 83735; 83880; 84443; 84484; 85025; 85610; 85730; 93005; 96361; 96374; 99285; C9803; J2930; J7030; U0003

== ENCOUNTER 2021-01-04 13:00 | Emergency (ER) | payer BC, OTHER ==
[~2021-01-04] VITALS: Ht 165.1 cm; Wt 127.0 kg
[~2021-01-04 13:00] MED LIST changes: +NAPR-514 PO; +PRED50TA PO
[2021-01-04 14:00] VITALS: BP 119/77
[2021-01-04] MEDS ORDERED: PRED-220 PO (14:12)
--- NOTE | 2021-01-04 14:12 | PHYS DOC ---
Past History Past Medical History: Endometriosis, Other Additional Past Medical Histor: PCOS, endometriosis, headaches Past Surgical History: Other Additional Past Surgical Histo: R WRIST, ENDOMETRIAL LINING SCRAPING, OVARIAN CYST, WISDOM TEETH REMOVAL Smoking: Non-smoker Alcohol Use: None Drug Use: None General Adult EDM: Chief Complaint: SKIN RASH/ABSCESS HPI: HPI: 25-year-old female presents with rash all over her body. The patient started noticing it and a half ago and it seems to keep spreading. It is intensely pruritic and and small vesicular patches. It is worse in her abdomen and around her gluteal cleft. Her has a similar rash but less severe. The patient has been highly sensitive to poison cari in the past. She first noticed the rash in the morning after her has been out doing the yard work. She denies any facial swelling or difficulty breathing. Review of Systems: Review of Systems: Constitutional: Denies fever or chills Eyes: Denies change in visual acuity HENT: Denies nasal congestion or sore throat Respiratory: Denies cough or shortness of breath Cardiovascular: Denies chest pain or edema GI: Denies abdominal pain, nausea, vomiting, bloody stools or diarrhea : Denies dysuria Musculoskeletal: Denies back pain or joint pain Integument: Rash Neurologic: Denies headache, focal weakness or sensory changes Endocrine: Denies polyuria or polydipsia Lymphatic: Denies swollen glands Psychiatric: Denies depression or anxiety Allergies: Allergies: Allergies Coded Allergies Type Severity Reaction Last Updated Verified amoxicillin Allergy Intermediate 05/02/20 Yes Penicillins Allergy Unknown 05/02/20 Yes Physical Exam: PE: Constitutional: Well developed, well nourished, no acute distress, non-toxic appearance. [] HENT: Normocephalic, atraumatic, bilateral external ears normal, oropharynx moist, no oral exudates, nose normal. [] Eyes: PERRLA, EOMI, conjunctiva normal, no discharge. [] Neck: Normal range of motion, no tenderness, supple, no stridor. [] Cardiovascular:Heart rate regular rhythm, no murmur [] Lungs & Thorax: Bilateral breath sounds clear to auscultation [] Abdomen: Bowel sounds normal, soft, no tenderness, no masses, no pulsatile masses. [] Skin: Scattered vesicular patches on the patient's bilateral upper extremities, lower extremities, abdomen, buttocks. [] Back: No tenderness, no CVA tenderness. [] Extremities: No tenderness, no cyanosis, no clubbing, ROM intact, no edema. [] Neurologic: Alert and oriented X 3, normal motor function, normal sensory function, no focal deficits noted. [] Psychologic: Affect normal, judgement normal, mood normal. [] EKG: EKG: [] Radiology/Procedures: Radiology/Procedures: [] Heart Score: C/O Chest Pain: N/A Risk Factors: Risk Factors: DM, Current or recent (<one month) smoker, HTN, HLP, family history of CAD, obesity. Risk Scores: Score 0 - 3: 2.5% MACE over next 6 weeks - Discharge Home Score 4 - 6: 20.3% MACE over next 6 weeks - Admit for Clinical Observation Score 7 - 10: 72.7% MACE over next 6 weeks - Early Invasive Strategies Course & Med Decision Making: Course & Med Decision Making Pertinent Labs and Imaging studies reviewed. (See chart for details) The patient's rash and history appear consistent with poison cari. I will treat her with 10 mg of Decadron IM and a prednisone taper for home. I will also give her a prescription for triamcinolone cream. She is stable for discharge at this time. [] Dragon Disclaimer: Dragon Disclaimer: This electronic medical record was generated, in whole or in part, using a voice recognition dictation system. Departure Departure: Impression: Primary Impression: Poison cari dermatitis Disposition: HOME / SELF CARE / HOMELESS Condition: STABLE Referrals: GILSON RUSS MD (PCP) Patient Instructions: Poison Cari, [id number] Scripts Prednisone (PREDNISONE) 10 Mg Tablet 10 MG PO UD for PREDNISONE TAPER, #24 TAB 0 Refills Take 4 tablets by mouth daily for 3 days, then take 3 tablets by mouth daily for 2 days, then take 2 tablet by mouth daily for 2 days, then take 1 tablet by mouth daily for 2 days, then stop. Prov: KASSY KHAN DO 01/04/21 KASSY KHAN DO Jan 04, 2021 14:12
[2021-01-04] MEDS ORDERED: TRIA15OI TP (14:14)
[2021-01-04] MEDS ORDERED: DEXAMETHASONE SOD PHOS 10 MG/ML VIAL. IM ONE (14:15)
== END 2021-01-04 14:24 | disposition home or self-care (01) ==
LOC: ER 13:00
DX: L23.7 Allergic contact dermatitis due to plants, except food (principal); Z88.0 Allergy status to penicillin; Z88.1 Allergy status to other antibiotic agents
CPT/HCPCS: 96372; 99283; J1100